=== PATIENT | male | born 2005 | race Caucasian/White ===

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

== ENCOUNTER 2023-06-04 14:15 | Inpatient (IN) | payer MEDICAID ==
[~2023-06-04] VITALS: Ht 174 cm; Wt 105.2 kg
[~2023-06-04 14:15] MED LIST changes: -ALB0.5UD IH; -ARIP400S3 IM; -HYDR50CA PO; +PALI156D IM
--- NOTE | 2023-06-04 17:44 | NUR ---
ADMIT NOTE: Pt is a [place] [employer] conserved pt. He was brought to [facility] for his LPS hearing today. LPS was upheld. Pt is here for the night and will be transported back tomorrow to [facility]. Pt is on Clozaril 300mg tonight. Per pharmacist his last CBC was on 05/18/23. CBC's are ordered Q2 weeks. Pt needs a stat CBC. No drugless physician is available. This nurse reported to House Sup. Simms. Pt is calm and cooperative. He showered, drank some water in the community then went to his room. Pts belongings inventoried per HONEY Myles.
[2023-06-04 19:00] VITALS: RESP 18; O2SAT 98
--- NOTE | 2023-06-04 19:13 | NUR ---
2x attempt for CBC blood draw. unsuccessful. Endorsed to charge nurse. She will follow up. Addendum: 06/05/23 at 0557 by Jose Levin LVN, LVN RN was able to draw CBC
[2023-06-04 19:32] LABS: RED BLOOD COUNT 5.12 X10'6 (4.70-6.10)
[2023-06-04 19:34] LABS: BASOPHILS # (AUTO) 0.1 X10'3 (0-0.2); EOSINOPHILS # (AUTO) 0.1 X10'3 (0-0.9); EOSINOPHILS % (AUTO) 1.7 % (0-6); HEMATOCRIT 46.4 % (42.0-52.0); HEMOGLOBIN 16.2 g/dl (14.0-17.9); LYMPHOCYTES # (AUTO) 2.7 X10'3 (1.1-4.8); LYMPHOCYTES % (AUTO) 33.9 % (21-51); MEAN CORPUSCULAR HEMOGLOBIN 31.7 PG (27.0-31.0); MEAN CORPUSCULAR VOLUME 90.7 FL (78-98); MEAN PLATELET VOLUME 6.3 FL (7.4-10.4); MONOCYTES # (AUTO) 1.2 X10'3 (0-0.9); MONOCYTES % (AUTO) 15.3 % (2-12); NEUTROPHILS # (AUTO) 3.8 X10'3 (1.8-7.7); NEUTROPHILS % (AUTO) 48.1 % (42-75); PLATELET COUNT 275 X10'3 (140-440)
[2023-06-04 19:38] VITALS: BP 139/87; PULSE 107; RESP 18; TEMP 97.4; O2SAT 98
[2023-06-04] MEDS ORDERED: famotidine 20mg tablet PO ONE (20:00)
[2023-06-04] MEDS ORDERED: CLOZAPINE 100 MG TAB.RAPDIS PO SCH (21:00)
--- NOTE | 2023-06-05 05:57 | NUR ---
Nursing Progress Note: Problem: Pt is a [place] conserved pt. He was brought to [facility] for his LPS hearing today. LPS was upheld. Pt is here for the night and will be transported back tomorrow to [facility]. Intervention: Medication administration/education/monitoring. Maintained a safe and supportive environment, provided clear and simple instructions, maintained Q15 minute safety checks Response: Pt received ambulating in kern. Pt appearance is downcast and disheveled. Oriented x 3. Speech is soft and clear. Pt thought content is depressive. Pt minimally engages with staff during interaction. Pt is able to make needs known. Pt appetite is good. He asks for multiple snacks. Pt is mainly quiet and self-isolative. He paces halls and watches movies during shift. Pt blood drawn by RN for CBC. Pt compliant with medications. Pt showered. Pt sleep is fair. Pt woke up about [id number] hrs. Oriented to [facility] coffee AM time. Pt presents with a new reddened irritated area to left inner thigh. Pt states this is new rash for today 06/05/23. Plan: LPS upheld and pt will be going back to [facility]. Continue to monitor in a safe therapeutic environment.
[2023-06-05] MEDS ORDERED: sertraline 50mg tablet PO SCH (08:00)
[2023-06-05] MEDS ORDERED: docusate sod 100mg capsule PO SCH (08:00)
[2023-06-05] MEDS ORDERED: CLOZAPINE 100 MG TAB.RAPDIS PO SCH (08:00)
--- NOTE | 2023-06-05 08:00 | NUR ---
Pt discharged with public guardian, meds and all belongings sent with patient/pick up driver.
== END 2023-06-05 08:00 | DRG 750 ==
LOC: ADULT MH 14:15
PROVIDERS: ADMIT Psychiatry & Neurology Psychiatry; ATTEND Psychiatry & Neurology Psychiatry
DX: F20.9 Schizophrenia, unspecified (principal); F17.210 Nicotine dependence, cigarettes, uncomplicated; F32.A Depression, unspecified
CPT/HCPCS: 36415; 85025